=== PATIENT | female | born 1990 | race Caucasian/White ===

== ENCOUNTER 2016-12-02 17:17 | Emergency (ER) | payer OTHER ==
[~2016-12-02] VITALS: Ht 167.6 cm; Wt 106.6 kg
[2016-12-02 17:49] VITALS: BP 130/80; PULSE 76; RESP 20; TEMP 98.2; O2SAT 97
[2016-12-02] MEDS ORDERED: NEOMYCIN/POLYMYX B/HYDROCORTISONE 10 ML EAR DROPS.SUSP OT ONE (19:00)
[2016-12-02] MEDS ORDERED: KETOROLAC TROMETHAMINE 60 MG/2 ML VIAL IM ONE (19:00)
[2016-12-02 20:05] VITALS: BP 128/78; PULSE 82; RESP 20; TEMP 98.2; O2SAT 97
== END 2016-12-02 20:05 | disposition home or self-care (01) ==
LOC: SED 17:17
DX: H60.12 Cellulitis of left external ear (principal)
CPT/HCPCS: 81025; 96372; 99283; J1885